=== PATIENT | female | born 1985 | race Caucasian/White ===

== ENCOUNTER 2016-09-09 10:51 | Day surgery (SDC) | payer OTHER ==
[2016-09-08 08:30] VITALS: BMI 36.2
[~2016-09-09 10:51] MED LIST: LACTATED RINGERS 1,000 ML IV SCH; LIDOCAINE 1% 20 ML VIAL (10MG/ML) FOR IV START INTRADERMA PRN
[2016-09-09 12:06] VITALS: RESP 16; TEMP 98.4
[2016-09-09] MEDS ORDERED: fentaNYL (PF) 50 MCG/ML 2 ML AMP ONE (12:13)
[2016-09-09] MEDS ORDERED: PROPOFOL 10 MG/ML 20 ML VIAL IV ONE (12:13)
[2016-09-09] MEDS ORDERED: MIDAZOLAM 2 MG/2 ML VIAL ONE (12:13)
--- NOTE | 2016-09-09 12:19 | P.GSHP ---
History of Present Illness H&P Date: 09/09/16 Chief Complaint: GI bleed This is a 31-year-old female referred from Dr. Valenzuela. Patient presents today for colonoscopy. She's had issues rectal bleeding. - Constitutional Constitutional: Reports as per HPI Past Medical History Past Medical History: Thyroid Disorder Additional Past Medical History / Comment(s): intermittent bleeding with stools. History of Any Multi-Drug Resistant Organisms: None Reported Past Surgical History: Section Additional Past Surgical History / Comment(s): LEEP Past Anesthesia/Blood Transfusion Reactions: No Reported Reaction Additional Past Anesthesia/Blood Transfusion Reaction / Comment(s): no hx blood transfusion Past Psychological History: No Psychological Hx Reported Smoking Status: Former smoker Past Alcohol Use History: Occasional Additional Past Alcohol Use History / Comment(s): quit smoking 2006,smoked approx "a couple yrs"smoked approx 1 cig per day Past Drug Use History: None Reported - Past Family History Mother Family Medical History: No Reported History Father Family Medical History: Diabetes Mellitus Medications and Allergies Home Medications Medication Instructions Recorded Confirmed Type Levothyroxine Sodium [Synthroid] 64.5 mcg PO QAM 09/08/16 09/08/16 History Zolpidem [Ambien] 5 mg PO HS PRN 09/08/16 09/08/16 History Allergies Allergy/AdvReac Type Severity Reaction Status Date / Time codeine Allergy Rash/Hives Verified 09/08/16 08:21 Surgical - Exam Vital Signs Temp Pulse Resp BP Pulse Ox 98.4 F 64 16 105/64 96 09/09/16 12:05 09/09/16 12:05 09/09/16 12:05 09/09/16 12:05 09/09/16 12:05 - General well developed, no distress - Eyes PERRL - ENT normal pinna - Neck no masses - Respiratory normal expansion - Cardiovascular Rhythm: regular - Abdomen Abdomen: soft, non tender Assessment and Plan Plan: GI bleed. We'll perform colonoscopy.
--- NOTE | 2016-09-09 12:28 | P.OP ---
Date of Procedure: 09/09/16 Preoperative Diagnosis: Blade Postoperative Diagnosis: Internal and external hemorrhoids Procedure(s) Performed: Colonoscopy Anesthesia: MAC Surgeon: Tian Rao Pathology: none sent Condition: stable Disposition: PACU Description of Procedure: The patient's placed on the endoscopy table lateral position. She received IV sedation. Digital rectal exam was performed which revealed internal/external hemorrhoids. The flexible colonoscope was then placed patient anus and passed throughout the entire colon. The ileocecal valve was visualized. The cecum, ascending, transverse and descending and sigmoid colon appeared normal. Scope was then brought back the rectum and this appeared normal. The scope was then withdrawn from patient. InternalAnd Hemorrhoids are noted the anus.
[2016-09-09 12:36] VITALS: BP 101/58; PULSE 79
== END 2016-09-09 13:08 | disposition home or self-care (01) ==
LOC: ORWHC2ENDO 10:51
PROVIDERS: ATTEND Surgery
DX: K64.8 Other hemorrhoids (principal); K64.4 Residual hemorrhoidal skin tags; E07.9 Disorder of thyroid, unspecified; Z79.899 Other long term (current) drug therapy; Z88.5 Allergy status to narcotic agent; Z87.891 Personal history of nicotine dependence
CPT/HCPCS: 81025; 45378; J2250; J3010; J2704

== ENCOUNTER → 2017-02-22 | Outpatient (CLI) | payer OTHER ==
--- NOTE | 2017-02-22 13:14 | XR ---
EXAMINATION TYPE: XR spine complete AP and Lat DATE OF EXAM: 02/22/2017 COMPARISON: NONE HISTORY: Pain TECHNIQUE: 2 views of the cervical, thoracic and lumbar spine are submitted. FINDINGS: Vertebral body height and disc interspace maintained at all levels. There is a minimal anterolisthesi s of C2 on 3 and C3 on C4 measuring approximately 2 mm. Facet arthropathy C6-C7 and C7-T1 noted. Thoracic and lumbar spine are in normal anatomic alignment. No compression deformities. Pedicles inta ct. Minimal curvature incidentally noted. Very mild hypertrophic changes are seen anteriorly within t he thoracic spine. IMPRESSION: 1. Facet arthropathy lower cervical spine with minimal anterolisthesis of C2 on C3 and C3 on C4. This may be related to ligamentous laxity. Correlate clinically and if necessary with MRI.
== END | disposition home or self-care (01) ==
LOC: RADXRMAIN 12:41
PROVIDERS: ATTEND Internal Medicine
DX: M43.12 Spondylolisthesis, cervical region (principal); M46.82 Other specified inflammatory spondylopathies, cervical region
CPT/HCPCS: 72082

== ENCOUNTER → 2019-07-12 | Outpatient (CLI) | payer OTHER ==
--- NOTE | 2019-07-12 08:47 | US ---
EXAMINATION TYPE: US thyroid st tissue head/neck DATE OF EXAM: 07/12/2019 COMPARISON: NONE CLINICAL HISTORY: R94.6 R22.0. Sam's, throat tightness, patient on thyroid meds. GLAND SIZE: Right Lobe: 5.2 x 2.0 x 2.2 cm Overall Parenchyma: heterogenous Left Lobe: 3.6 x 1.7 x 1.5 cm Overall Parenchyma: heterogeneous Isthmus Thickness: 0.4 cm NODULES RIGHT: # of nodules measured on right: 0 LEFT: # of nodules measured on left: 0 ISTHMUS: # of nodules measured in the isthmus: 0 Bilateral neck scanned, no evidence of lymphadenopathy. There is marked hypervascularity throughout t he thyroid gland, particularly within the right lobe. IMPRESSION: Hypervascular heterogenous thyroid gland, particularly within the right lobe in keeping w ith this patient's known history of thyroiditis. No discrete nodule.
== END | disposition home or self-care (01) ==
LOC: RADUSWWP 07:11
PROVIDERS: ATTEND Internal Medicine
DX: E06.9 Thyroiditis, unspecified (principal); E07.89 Other specified disorders of thyroid
CPT/HCPCS: 76536

== ENCOUNTER 2020-05-17 22:39 | Emergency (ER) | payer OTHER ==
[2020-05-17] MEDS ORDERED: SODIUM CHLORIDE 0.9% 1,000 ML IV STA (22:52)
[2020-05-17 23:22] LABS: Basophils # (A) 0.1 k/uL (0-0.2); Basophils % (A) 1 %; Eosinophils # (A) 0.1 k/uL (0-0.7); Eosinophils % (A) 1 %; HCT 44.2 % (34.0-46.0); HGB 15.6 gm/dL (11.4-16.0); Lymphocytes # (A) 2.5 k/uL (1.0-4.8); Lymphocytes % (A) 29 %; MCH 31.5 pg (25.0-35.0); MCHC 35.4 g/dL (31.0-37.0); MCV 89.2 fL (80.0-100.0); Mean Platelet Volume 7.2; Monocytes # (A) 0.5 k/uL (0-1.0); Monocytes % (A) 6 %; Neutrophils # (A) 5.4 k/uL (1.3-7.7); Neutrophils % (A) 62 %; Platelet Count 309 k/uL (150-450); RBC 4.95 m/uL (3.80-5.40); WBC 8.8 k/uL (3.8-10.6)
--- NOTE | 2020-05-17 23:25 | ED ---
Chest Pain HPI - General Chief Complaint: Chest Pain Stated Complaint: Chest Pain, elevated hr Time Seen by Provider: 05/17/20 22:41 Source: patient, RN notes reviewed, old records reviewed Mode of arrival: wheelchair Limitations: no limitations - History of Present Illness Initial Comments: This is a 35-year-old female DF for evaluation. Patient is underlying thyroid issue with no current treatment in medications. Patient was sent down on shift for evaluation of elevated heart rate does not feeling well. Nursing travel history no sick contacts. Patient was urgently concern over possibility of coronavirus. She also admitted to some reflux type symptoms yesterday. Otherwise no shortness of breath no chest pain today no abdominal pain or nausea vomiting or diarrhea. MD Complaint: chest pain, other (Reflux type pain last night) -: days(s) Onset: during rest Pain Location: substernal Severity: mild Quality: ripping, other (Burning pain) Consistency: intermittent Improves With: nothing Worsens With: nothing Context: other (Elevated heart rate) Anginal Symptoms: nausea Other Symptoms: other (None) Treatments Prior to Arrival: none - Related Data Home Medications Medication Instructions Recorded Confirmed Levothyroxine Sodium [Synthroid] 64.5 mcg PO QAM 09/08/16 09/08/16 Zolpidem [Ambien] 5 mg PO HS PRN 09/08/16 09/08/16 Allergies Allergy/AdvReac Type Severity Reaction Status Date / Time codeine Allergy Rash/Hives Verified 09/08/16 08:21 Review of Systems ROS Statement: Those systems with pertinent positive or pertinent negative responses have been documented in the HPI. ROS Other: All systems not noted in ROS Statement are negative. EKG Findings - EKG Comments: EKG Findings:: EKG is sinus tach 104, MS 138 QRS 148 QTc 536 Past Medical History Past Medical History: Thyroid Disorder Additional Past Medical History / Comment(s): intermittent bleeding with stools, hashimotos History of Any Multi-Drug Resistant Organisms: None Reported Past Surgical History: Section Additional Past Surgical History / Comment(s): LEEP Past Anesthesia/Blood Transfusion Reactions: No Reported Reaction Additional Past Anesthesia/Blood Transfusion Reaction / Comment(s): no hx blood transfusion Past Psychological History: No Psychological Hx Reported Past Alcohol Use History: Occasional Past Drug Use History: None Reported - Past Family History Mother Family Medical History: No Reported History Father Family Medical History: Diabetes Mellitus General Exam Limitations: no limitations General appearance: alert, in no apparent distress, anxious Head exam: Present: atraumatic, normocephalic, normal inspection Eye exam: Present: normal appearance, PERRL, EOMI. Absent: scleral icterus, conjunctival injection, periorbital swelling ENT exam: Present: normal exam, mucous membranes moist Neck exam: Present: normal inspection. Absent: tenderness, meningismus, lymphadenopathy Respiratory exam: Present: normal lung sounds bilaterally. Absent: respiratory distress, wheezes, rales, rhonchi, stridor Cardiovascular Exam: Present: regular rate, normal rhythm, normal heart sounds. Absent: systolic murmur, diastolic murmur, rubs, gallop, clicks GI/Abdominal exam: Present: soft, normal bowel sounds. Absent: distended, tenderness, guarding, rebound, rigid Extremities exam: Present: normal inspection, full ROM, normal capillary refill. Absent: tenderness, pedal edema, joint swelling, calf tenderness Back exam: Present: normal inspection Neurological exam: Present: alert, oriented X3, CN II-XII intact Psychiatric exam: Present: normal affect, normal mood Skin exam: Present: warm, dry, intact, normal color. Absent: rash Course Vital Signs 05/17/20 05/18/20 05/18/20 22:47 00:00 01:00 Temperature 97.9 F Pulse Rate 110 H 100 101 H Respiratory 19 16 16 Rate Blood Pressure 141/100 124/84 120/81 O2 Sat by Pulse 99 98 Oximetry - Reevaluation(s) Reevaluation #1: 05/18/20 01:41 Medical records reviewed Reevaluation #2: 05/18/20 01:41 Patient is informed of results here in the ER Reevaluation #3: 05/18/20 01:41 Patient is in no distress informed of again negative coronavirus test and patient can be discharged home Chest Pain MDM - MDM 45 female with nonspecific symptoms some reflux esophagitis, tachycardia and then originally elevated blood pressure is underlying anxiety. Patient has negative testing here in the ER and can be discharged home able to return to work Disposition Clinical Impression: Reflux gastritis, Tachycardia, Palpitations Disposition: HOME SELF-CARE Condition: Good Instructions (If sedation given, give patient instructions): Heart Palpitations (ED), Gastritis (ED) Is patient prescribed a controlled substance at d/c from ED?: No Referrals: Alesia Willard MD [Primary Care Provider] - 1-2 days
[2020-05-17 23:33] LABS: ALT 31 U/L (4-34); AST 26 U/L (14-36); African American GFR (CKD) >90 (>60 ml/min/1.73 sqM); Albumin 4.7 g/dL (3.5-5.0); Alkaline Phosphatase 83 U/L (38-126); Anion Gap 9 mmol/L; Blood Urea Nitrogen 6 mg/dL (7-17); C Reactive Protein 9.3 mg/L (<10.0); Calcium 9.6 mg/dL (8.4-10.2); Carbon Dioxide 24 mmol/L (22-30); Chloride 104 mmol/L (98-107); Creatine Kinase 62 U/L (30-135); Glucose 120 mg/dL (74-99); LDH 424 U/L (313-618); Lipase 36 U/L (23-300); Magnesium 1.9 mg/dL (1.6-2.3); Non-African American GFR(CKD) >90 (>60 ml/min/1.73 sqM); Potassium 3.8 mmol/L (3.5-5.1); Sodium 137 mmol/L (137-145); Total Bilirubin 0.7 mg/dL (0.2-1.3); Total Protein 7.9 g/dL (6.3-8.2)
[2020-05-17 23:39] LABS: Partial Thromboplastin Time 25.1 sec (22.0-30.0)
--- NOTE | 2020-05-17 23:39 | XR ---
EXAMINATION TYPE: XR chest 2V DATE OF EXAM: 05/17/2020 COMPARISON: NONE HISTORY: Chest pain TECHNIQUE: 2 views FINDINGS: Heart and mediastinum are normal. Lungs are clear. Diaphragm is normal. Bony thorax appears normal. There are chest leads. IMPRESSION: Normal chest.
[2020-05-17 23:43] LABS: Creatine Kinase MB <0.2 ng/mL (0.0-2.4); Troponin I <0.012 ng/mL (0.000-0.034)
[2020-05-18 01:03] LABS: T4, Free (Free Thyroxine) 1.19 ng/dL (0.78-2.19)
[2020-05-18 01:46] VITALS: BP 117/79; PULSE 108; RESP 18; TEMP 98.1
== END 2020-05-18 01:46 | disposition home or self-care (01) ==
LOC: EC 22:39
DX: K29.60 Other gastritis without bleeding (principal); R00.0 Tachycardia, unspecified; R00.2 Palpitations; E07.9 Disorder of thyroid, unspecified; Z20.822 Contact with and (suspected) exposure to COVID-19; Z79.890 Hormone replacement therapy; Z88.5 Allergy status to narcotic agent
CPT/HCPCS: 36415; 71046; 80053; 82550; 82553; 83615; 83690; 83735; 83880; 84439; 84443; 84484; 85025; 85379; 85610; 85730; 86140; 87635; 93005; 96360; 99285

== ENCOUNTER → 2021-05-06 | Outpatient (CLI) | payer OTHER ==
--- NOTE | 2021-05-06 15:56 | US ---
EXAMINATION TYPE: US pelvis complete transvag DATE OF EXAM: 05/06/2021 COMPARISON: NONE CLINICAL HISTORY: R10.2 Pelvic pain; N83.0 Ovarian cyst. TECHNIQUE: Transvaginal (TV) and Transabdominal (TA) . Transabdominal sonographic images of the pel vis were acquired. Transvaginal sonographic images were medically necessary to better assess the fol lowing anatomy: Endometrium Date of LMP: irregular 05/02/2021 EXAM MEASUREMENTS: Uterus: 8.2x6.0x4.7 cm Endometrial Stripe: 1.1 cm Right Ovary: 2.4x1.9x2.0cm cm Left Ovary: 2.4x2.4x1.9 cm 1. Uterus: Anteverted Anterior cystic area in mid uterus. 0.6x0.7x0.4cm 2. Endometrium: 1.1cm 3. Right Ovary: wnl 4. Left Ovary: wnl 5. Bilateral Adnexa: wnl 6. Posterior cul-de-sac: wnl IMPRESSION: 1. Small hypoechoic cyst like area mid anterior uterus
== END | disposition home or self-care (01) ==
LOC: RADUSWWP 15:03
PROVIDERS: ATTEND Internal Medicine
DX: N85.8 Other specified noninflammatory disorders of uterus (principal)
CPT/HCPCS: 76830; 76856

== ENCOUNTER 2024-06-30 16:58 | Emergency (ER) | payer OTHER ==
--- NOTE | 2024-06-30 17:03 | ED ---
Chest Pain HPI - General Stated Complaint: chest pressure Time Seen by Provider: 06/30/24 17:03 Source: RN notes reviewed, old records reviewed Mode of arrival: ambulatory Limitations: no limitations - History of Present Illness Initial Comments: This is a 39-year-old female to the ER for evaluation of left-sided chest pain. Patient has history of Sam's thyroiditis is no other medical history, mild family history of heart disease coming in with left-sided chest pain and squeezing muscle pain squeezing left-sided chest squeezing to her back episodes are periodic with no symptoms of diaphoresis or shortness of breath. Pain currently resolved, no prior ER visit for chest pain. No travel history or sick contacts no recent fevers or shortness of breath or other illness MD Complaint: chest pain -: days(s) Onset: during rest, during exertion Pain Location: left chest Pain Radiation: back Severity: moderate Severity scale (1-10): 4 Quality: tightness Consistency: intermittent, now resolved Improves With: nothing Worsens With: nothing Context: other (0) Anginal Symptoms: other (0) Other Symptoms: other (0) Treatments Prior to Arrival: none - Related Data Home Medications Medication Instructions Recorded Confirmed Levothyroxine Sodium [Synthroid] 64.5 mcg PO QAM 09/08/16 09/08/16 Zolpidem [Ambien] 5 mg PO HS PRN 09/08/16 09/08/16 Allergies Allergy/AdvReac Type Severity Reaction Status Date / Time codeine Allergy Rash/Hives Verified 06/30/24 17:06 Review of Systems ROS Statement: Those systems with pertinent positive or pertinent negative responses have been documented in the HPI. ROS Other: All systems not noted in ROS Statement are negative. EKG Findings - EKG Comments: EKG Findings:: EKG is sinus rhythm 87 OK 155 QRS 149 QTc 452, evidence of right bundle branch - EKG Results: EKG: interpreted by MINOO Past Medical History Past Medical History: Thyroid Disorder Additional Past Medical History / Comment(s): intermittent bleeding with stools, hashimotos History of Any Multi-Drug Resistant Organisms: None Reported Past Surgical History: Section Additional Past Surgical History / Comment(s): LEEP Past Anesthesia/Blood Transfusion Reactions: No Reported Reaction Additional Past Anesthesia/Blood Transfusion Reaction / Comment(s): no hx blood transfusion Past Psychological History: No Psychological Hx Reported Past Alcohol Use History: Occasional Past Drug Use History: None Reported - Past Family History Mother Family Medical History: No Reported History Father Family Medical History: Diabetes Mellitus General Exam General appearance: alert, in no apparent distress Head exam: Present: atraumatic, normocephalic, normal inspection Eye exam: Present: normal appearance, PERRL, EOMI. Absent: scleral icterus, conjunctival injection, periorbital swelling ENT exam: Present: normal exam, mucous membranes moist Neck exam: Present: normal inspection. Absent: tenderness, meningismus, lymphadenopathy Respiratory exam: Present: normal lung sounds bilaterally. Absent: respiratory distress, wheezes, rales, rhonchi, stridor Cardiovascular Exam: Present: regular rate, normal rhythm, normal heart sounds. Absent: systolic murmur, diastolic murmur, rubs, gallop, clicks GI/Abdominal exam: Present: soft, normal bowel sounds. Absent: distended, tenderness, guarding, rebound, rigid Extremities exam: Present: normal inspection, full ROM, normal capillary refill. Absent: tenderness, pedal edema, joint swelling, calf tenderness Back exam: Present: normal inspection Neurological exam: Present: alert, oriented X3, CN II-XII intact Psychiatric exam: Present: normal affect, normal mood Skin exam: Present: warm, dry, intact, normal color. Absent: rash Course Vital Signs 06/30/24 17:02 Temperature 98.9 F Pulse Rate 85 Respiratory 18 Rate Blood Pressure 143/104 O2 Sat by Pulse 98 Oximetry - Reevaluation(s) Reevaluation #1: 06/30/24 17:32 Medical records reviewed No prior ER visit for chest pain Reevaluation #2: 06/30/24 18:04 Patient remains without chest pain here in the emergency department Not requiring anything for pain control no shortness of breath Patient having require recurrent pain requesting pain medication Reevaluation #3: 06/30/24 18:04 Patient informed of results questions answered Reevaluation #4: Was pt. sent in by a medical professional or institution (, PA, BROADCAST JOURNALIST, urgent care, hospital, or shelter...) When possible be specific @ -no Did you speak to anyone other than the patient for history (EMS, parent, family, police, friend...)? What history was obtained from this source @ -no Did you review nursing and triage notes (agree or disagree)? Why? @ -agree Are old charts reviewed (outside hosp., previous admission, EMS record, old EKG, old radiological studies, urgent care reports/EKG's, shelter records)? Report findings @ -yes Differential Diagnosis (chest pain, altered mental status, abdominal pain women, abdominal pain men, vaginal bleeding, weakness, fever, dyspnea, syncope, headache, dizziness, GI bleed, back pain, seizure, CVA, palpatations, mental health, musculoskeletal)? @ -prior EKG interpreted by me (3pts min.). @ -yes X-rays interpreted by me (1pt min.). @ -yes negative for acute disease CT interpreted by me (1pt min.). @ -no U/S interpreted by me (1pt. min.). @ -no What testing was considered but not performed or refused? (CT, X-rays, U/S, labs)? Why? @ -none What meds were considered but not given or refused? Why? @ -none Did you discuss the management of the patient with other professionals (professionals i.e. , PA, BROADCAST JOURNALIST, lab, RT, psych nurse, social insurance specialist, tax lawyer, teacher, housing management officer, watch case polisher)? Give summary @ -no Was smoking cessation discussed for >3mins.? @ -no Was critical care preformed (if so, how long)? @ -no Were there social determinants of health that impacted care today? How? (Homelessness, low income, unemployed, alcoholism, drug addiction, transportation, low edu. Level, literacy, decrease access to med. care, group home, rehab)? @ -none Was there de-escalation of care discussed even if they declined (Discuss DNR or withdrawal of care, Hospice)? DNR status @ -no What co-morbidities impacted this encounter? (DM, HTN, Smoking, COPD, CAD, Cancer, CVA, ARF, Chemo, Hep., AIDS, mental health diagnosis, sleep apnea, morbid obesity)? @ -none Was patient admitted / discharged? Hospital course, mention meds given and route, prescriptions, significant lab abnormalities, going to OR and other pertinent info. @ - Undiagnosed new problem with uncertain prognosis? @ -no Drug Therapy requiring intensive monitoring for toxicity (Heparin, Nitro, Insulin, Cardizem)? @ -no Were any procedures done? @ -no Diagnosis/symptom? @ - Acute, or Chronic, or Acute on Chronic? @ -Acute Uncomplicated (without systemic symptoms) or Complicated (systemic symptoms)? @ -Complicated Side effects of treatment? @ -no Exacerbation, Progression, or Severe Exacerbation? @ -exacerbation Poses a threat to life or bodily function? How? (Chest pain, [place], [place], pneumonia, PE, COPD, DKA, ARF, appy, cholecystitis, CVA, Diverticulitis, Homicidal, Suicidal, threat to staff... and all critical care pts) @ -yes Reevaluation #5: Differential Chest Pain: Stable Angina, Unstable Angina, STEMI, NSTEMI Aortic Dissection, Pneumothorax, Musculoskeletal, Esophageal Spasm GERD, Cholecystitis, Pancreatitis, Zoster, this is not meant to be an all-inclusive list. Chest Pain MDM - MDM 39 female with tightness squeezing left chest left chest wall to the back with symptoms currently resolved. Normal D-dimer, normal troponin, right bundle branch on EKG with no changes, patient can be discharged home Disposition Clinical Impression: Chest pain, Atypical chest pain Disposition: HOME SELF-CARE Condition: Good Instructions (If sedation given, give patient instructions): Chest Pain (ED) Is patient prescribed a controlled substance at d/c from ED?: No Referrals: Huseyin Silva MD [Primary Care Provider] - 1-2 days Time of Disposition: 18:00
[2024-06-30 17:08] VITALS: RESP 18; TEMP 98.9
[2024-06-30] MEDS: SODIUM CHLORIDE 0.9% 500 ML 500 ML IV STA (17:25)
[2024-06-30] MEDS: KETOROLAC 15 MG/ML 1 ML VIAL IVP STA (17:25)
[2024-06-30 17:27] LABS: Basophils % (A) 1 %; Eosinophils # (A) 0.2 k/uL (0-0.7); Eosinophils % (A) 3 %; HCT 41.1 % (34.0-46.0); HGB 14.1 gm/dL (11.4-16.0); Lymphocytes # (A) 2.9 k/uL (1.0-4.8); Lymphocytes % (A) 37 %; MCH 30.8 pg (25.0-35.0); MCHC 34.3 g/dL (31.0-37.0); MCV 89.8 fL (80.0-100.0); Mean Platelet Volume 7.4; Monocytes # (A) 0.5 k/uL (0-1.0); Monocytes % (A) 6 %; Neutrophils # (A) 4.1 k/uL (1.3-7.7); Neutrophils % (A) 52 %; Platelet Count 349 k/uL (150-450); RBC 4.57 m/uL (3.80-5.40); RDW 12.4 % (11.5-15.5); WBC 7.9 k/uL (3.8-10.6)
--- NOTE | 2024-06-30 17:27 | XR ---
EXAMINATION TYPE: XR chest 2V DATE OF EXAM: 06/30/2024 5:19 PM COMPARISON: None CLINICAL INDICATION: Female, 39 years old with history of Chest Pain; [facility] TECHNIQUE: XR chest 2V Frontal and lateral views of the chest. FINDINGS: Lungs/Pleura: There is no evidence of pleural effusion, focal consolidation, or pneumothorax. Pulmonary vascularity: Unremarkable. Heart/mediastinum: Cardiomediastinal silhouette is unremarkable. Musculoskeletal: No acute osseous pathology. IMPRESSION: No acute cardiopulmonary disease/process. [facility], , 06/30/2024 5:25 PM
[2024-06-30 17:40] LABS: ALT 22 U/L (4-34); AST 22 U/L (14-36); African American GFR (CKD) >90 (>60 ml/min/1.73 sqM); Albumin 4.3 g/dL (3.5-5.0); Alkaline Phosphatase 69 U/L (38-126); Anion Gap 12 mmol/L; Blood Urea Nitrogen 8 mg/dL (7-17); Calcium 9.5 mg/dL (8.4-10.2); Carbon Dioxide 22 mmol/L (22-30); Chloride 105 mmol/L (98-107); Glucose 100 mg/dL (74-99); Lipase 95 U/L (23-300); Non-African American GFR(CKD) >90 (>60 ml/min/1.73 sqM); Potassium 3.7 mmol/L (3.5-5.1); Sodium 139 mmol/L (137-145); Total Bilirubin 0.6 mg/dL (0.2-1.3); Total Protein 7.2 g/dL (6.3-8.2)
[2024-06-30 17:41] LABS: Partial Thromboplastin Time 26.5 sec (22.0-30.0)
[2024-06-30 17:48] LABS: NT-Pro-B-Type Natriuretic Pept 45 pg/mL
[2024-06-30] MEDS: ACETAMINOPHEN TAB 500 MG TAB PO STA (18:25)
--- NOTE | 2024-06-30 20:44 | CT ---
EXAMINATION TYPE: CT brain wo con DATE OF EXAM: 06/30/2024 8:06 PM COMPARISON: None. CLINICAL INDICATION: Female, 39 years old with history of saunders, Chest pain and headache TECHNIQUE: CT of the brain is performed utilizing 3 mm thick sections through the posterior fossa and 3 mm thick sections through the remaining calvarium. Study is performed within 24 hours of arrival to the hospital. Contrast used: mL of , (none if empty) CT DLP: 2222.4 mGycm, Automated exposure control for dose reduction was used. FINDINGS: No abnormal hyperdensity is present to suggest an acute intracranial hemorrhage. No mass lesion is evident. No acute infarcts are evident. Ventricles and sulci are appropriate for the patient age. Paranasal sinuses and mastoid air cells within the evmoq-or-gaer are clear. IMPRESSION: 1. No acute intracranial process. Follow up MRI can be performed as clinically indicated. [facility], , 06/30/2024 8:41 PM
--- NOTE | 2024-06-30 20:49 | CT ---
EXAMINATION TYPE: CT angio COW [place] DATE OF EXAM: 06/30/2024 8:06 PM COMPARISON: None. CLINICAL INDICATION: Female, 39 years old with history of saunders, Chest pain and headache TECHNIQUE: CTA scan is performed with axial images are obtained, coronal and sagittal reformatted sindy ges are reviewed. Source images are reviewed. Contrast used:100 mL of Isovue 370 without and with IV Contrast, (none if empty) Oral contrast used: (none if empty) CT DLP: 2222.4 mGycm, Automated exposure control for dose reduction was used. FINDINGS: Cervical of [place]: Vertebral basilar system appears normal. Posterior cerebral vasculature is unrema rkable. Internal carotid arteries bifurcate normally into A1 and M1 segments. A2 segments are normal. The anterior communicating artery is patent. The right posterior communicating artery is absent. The left posterior communicating artery is patent. IMPRESSION: 1. Normal [place] [facility], , 06/30/2024 8:46 PM
[2024-06-30 20:52] VITALS: BP 128/98; PULSE 71
== END 2024-06-30 20:50 | disposition home or self-care (01) ==
LOC: EC 16:58
DX: R07.89 Other chest pain (principal); Z88.5 Allergy status to narcotic agent
CPT/HCPCS: 36415; 93005; 85379; 83880; 80053; 83690; 83735; 84484; 85025; 85610; 85730; 71046; 70496; 70450; 99285; 96374; 96361; J1885; Q9967